=== PATIENT | male | born 1995 | race Caucasian/White ===

== ENCOUNTER 2021-07-17 12:23 | Emergency (ER) | payer MEDICAID ==
[~2021-07-17] VITALS: Ht 182.9 cm; Wt 82.0 kg
[2021-07-17 12:41] VITALS: BP 129/78
== END 2021-07-17 14:58 | disposition home or self-care (01) ==
LOC: ER 12:24
DX: S16.1XXA Strain of muscle, fascia and tendon at neck level, initial encounter (principal); M54.2 Cervicalgia; X58.XXXA Exposure to other specified factors, initial encounter; Y93.89 Activity, other specified; Y92.89 Other specified places as the place of occurrence of the external cause; Y99.8 Other external cause status
CPT/HCPCS: 99281